=== PATIENT | male | born 1970 | race American Indian/Alaskan Native ===

== ENCOUNTER 2017-03-04 12:02 | Emergency (ER) | payer OTHER ==
[2017-03-04 12:42] LABS: Hematocrit 39.5 % (35.5-45.6); Hemoglobin 13.3 gm/dl (11.8-15.2); Mean Corpuscular HGB Conc 34 % (32-34); Mean Corpuscular Hemoglobin 31 pg (28-32); Mean Corpuscular Volume 91 fl (84-94); Platelet Count 228 K/mm3 (140-440); Red Blood Count 4.34 M/mm3 (3.65-5.03); Red Cell Distribution Width 14.7 % (13.2-15.2); White Blood Count 11.3 K/mm3 (4.5-11.0)
[2017-03-04 12:48] LABS: Urine Drugs of Abuse Note Disclamer
[2017-03-04] MEDS ORDERED: CATAPRES PO ONE ×2 (12:48→16:06)
[2017-03-04 12:53] LABS: Anion Gap 20 mmol/L; Blood Urea Nitrogen 13 mg/dL (9-20); Calcium 9.2 mg/dL (8.4-10.2); Carbon Dioxide 23 mmol/L (22-30); Chloride 100.5 mmol/L (98-107); Glucose 129 mg/dL (75-100); Potassium 3.5 mmol/L (3.6-5.0); Sodium 140 mmol/L (137-145)
--- NOTE | 2017-03-04 13:08 | Emergency Department Report ---
ED Psych HPI - General Chief Complaint: Psych Stated Complaint: SI/HEARING VOICES Time Seen by Provider: 03/04/17 12:30 Source: patient Mode of arrival: Ambulatory Limitations: No Limitations - History of Present Illness Initial Comments: 46-year-old male presents to the emergency department for mental health evaluation. Patient states for the past 5 days, he has been hearing voices and having thoughts of suicide. Patient states he has been using crack cocaine and marijuana. He states he plans to overdose on his drugs. There are no other complaints. MD Complaint: suicidal ideation -: Gradual, days(s) (5) Associated Psychiatric Symptoms: suicidal ideation, auditory hallucinations History of same: No Quality: constant Improves With: none Worsens With: none Context: recent drug abuse Associated Symptoms: denies other symptoms If Self Harm: admits thoughts of, has plan - Related Data Home Medications Medication Instructions Recorded Confirmed Last Taken No Known Home Medications [No 05/12/16 05/26/16 Unknown Reported Home Medications] Allergies Allergy/AdvReac Type Severity Reaction Status Date / Time No Known Allergies Allergy Verified 03/04/17 12:09 ED Review of Systems ROS: Stated complaint: SI/HEARING VOICES Other details as noted in HPI Comment: All other systems reviewed and negative Psychiatric: auditory hallucinations, suicidal thoughts ED Past Medical Hx - Past Medical History Previous Medical History?: Yes Hx Hypertension: Yes Hx Psychiatric Treatment: Yes (substance abuse/detox) - Surgical History Past Surgical History?: Yes Additional Surgical History: L ELBOW. - Family History Family history: no significant - Social History Smoking Status: Never Smoker Substance Use Type: Cocaine, Marijuana - Medications Home Medications: Home Medications Medication Instructions Recorded Confirmed Last Taken Type No Known Home Medications [No 05/12/16 05/26/16 Unknown History Reported Home Medications] ED Physical Exam - General Limitations: No Limitations General appearance: alert, in no apparent distress - Head Head exam: Present: atraumatic, normocephalic - Eye Eye exam: Present: normal appearance, PERRL, EOMI - ENT ENT exam: Present: normal exam, normal orophraynx, mucous membranes moist - Neck Neck exam: Present: normal inspection, full ROM. Absent: tenderness - Respiratory Respiratory exam: Present: normal lung sounds bilaterally. Absent: respiratory distress - Cardiovascular Cardiovascular Exam: Present: normal rhythm, tachycardia, normal heart sounds - GI/Abdominal GI/Abdominal exam: Present: soft, normal bowel sounds. Absent: distended, tenderness - Extremities Exam Extremities exam: Present: normal inspection, full ROM. Absent: tenderness - Back Exam Back exam: Present: normal inspection, full ROM. Absent: tenderness - Neurological Exam Neurological exam: Present: alert, oriented X3. Absent: motor sensory deficit - Psychiatric Psychiatric exam: Present: depressed, suicidal ideation, other (tearful on exam) - Skin Skin exam: Present: warm, dry, intact ED Course Vital Signs 03/04/17 03/04/17 12:12 13:00 Temperature 98.3 F 98 F Pulse Rate 117 H 103 H Respiratory 17 Rate Blood Pressure 186/124 Blood Pressure 150/94 [Left] O2 Sat by Pulse 97 Oximetry ED Medical Decision Making - Lab Data Result diagrams: 03/04/17 12:19 03/04/17 12:19 - Medical Decision Making Lab results reviewed. Patient has been medically cleared. Form 1013 has been signed and placed on the patient's chart. Patient is awaiting mental health evaluation for inpatient placement. - Differential Diagnosis depression, suicidal ideation, drug abuse Critical care attestation.: If time is entered above; I have spent that time in minutes in the direct care of this critically ill patient, excluding procedure time. ED Disposition Clinical Impression: Drug abuse, Suicidal ideation Disposition: DC/TX PSY HOSP/PSY UNIT Is pt being admited?: No Condition: Stable Time of Disposition: 13:19
[2017-03-04 13:11] LABS: Bilirubin,Urine NEG (Negative); Blood,Urine NEG (Negative); Ketones,Urine TR mg/dL (Negative)
[2017-03-04 13:12] LABS: Leukocyte Esterase,Urine NEG (Negative); Mucus,Urine 1+ /HPF; Nitrite,Urine NEG (Negative); Urobilinogen,Urine < 2.0 mg/dL (<2.0)
[2017-03-04 13:25] LABS: Basophils % (Manual) 0 % (0.0-1.8); Blastocytes % (Manual) 0 %; Eosinophils % (Manual) 0 % (0.0-4.3)
[2017-03-04 13:28] LABS: Anisocytosis 1+; Diff Status Complete; Large Platelets Few; Platelet Estimate CV
[2017-03-04] MEDS ORDERED: HALDOL PO PRN (16:15)
[2017-03-05] MEDS ORDERED: CATAPRES ONE (12:56)
[2017-03-05] MEDS ORDERED: TYLENOL ONE (12:56)
[2017-03-05] MEDS ORDERED: TYLENOL PO ONE (12:59)
[2017-03-05] MEDS ORDERED: CATAPRES PO ONE (12:59)
[2017-03-05] MEDS ORDERED: MOTRIN PO ONE (15:17)
--- NOTE | 2017-03-05 16:20 | XRay Report ---
FINAL REPORT PROCEDURE: XR CHEST ROUTINE 2V TECHNIQUE: PA and lateral chest radiographs were obtained. CPT 38155 HISTORY: fever COMPARISON: No prior studies are available for comparison. FINDINGS: Heart: Normal. Mediastinum/Vessels: Normal. Lungs/Pleural space: Normal. Bony thorax: No acute osseous abnormality. Other: IMPRESSION: There is no evidence of an acute cardiopulmonary process.
--- NOTE | 2017-03-06 10:35 | Consultation ---
History of Present Illness - Reason for Consult Consult date: 03/06/17 Reason for consult: Mental Health Evaluation Requesting physician: LEV HAMILTON - Chief Complaint Chief complaint: "I need help to get off the drugs" - History of Present Psychiatric Illness 46-year-old male presents to the emergency department for mental health evaluation. Patient states for the past 5 days, he has been hearing voices and having thoughts of suicide. Today patient is calm and cooperative during the assessment. He stated that his biggest issue is recreational drug use. He stated that his girlfriend put him out a couple days ago, because she felt he isn't being a man of the house. Prior to coming to [facility], patient stated that he got into a argument with his girlfriend and left the house. Once he left the house, he decided to buy drugs and get high (marijuana and cocaine). He stated on arrival to [facility], he felt suicidal and was hearing "crazy voices" in his ears. He stated that he want to be a family man, but the drugs has taken over his life. She stated that he goes to the [facility] for rehab, but he always relapse. He denies SI/H's, AVH's, or a poor appetite. He did state that his sleep has been erratic. He stated that he feels sad and hopeless about his situation over for a "long time." He stated that he has thought about harming himself a couple times. He stated that he drink alcohol seldom. Medications and Allergies Allergies Allergy/AdvReac Type Severity Reaction Status Date / Time No Known Allergies Allergy Verified 03/04/17 12:09 Home Medications Medication Instructions Recorded Confirmed Last Taken Type Unobtainable 03/04/17 03/04/17 Unknown History Active Meds: Active Medications Haloperidol (Haldol) 5 mg PO Q6H PRN PRN Reason: Agitation Past psychiatric history - Past Medical History Past Medical History: No medical history Past Surgical History: No surgical history - past Psychiatric treatment and history psychiatric treatment history: Stated that he goes to [facility] for rehab. He denies an fam pshy hx. 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 Assessment and Plan Assessment and plan: Impression: Substance Use DO (Cocaine and Marijuana), MDD Severe Type. 46-year- old male presents to the emergency department for mental health evaluation. Patient states for the past 5 days, he has been hearing voices and having thoughts of suicide. Today patient is calm and cooperative during the assessment. He stated that his biggest issue is recreational drug use. He stated that his girlfriend put him out a couple days ago, because she felt he isn't being a man of the house. Prior to coming to [facility], patient stated that he go into a argument with his girlfriend and left the house. Once he left the house, he decided to buy drugs and get high (marijuana and cocaine). He stated on arrival to [facility], he felt suicidal and was hearing "crazy voices" in his ears. He denies SI/HIs and AVH's. Positive for marijuana and cocaine. Patient has family dynamic issues with girlfriend. Patient is homeless. DD: R/O Bipolar Recommendation/Plan: Continue 1013 with possible placement to inpatient psy services. Start Zoloft 50 mg PO daily for depression and Benadryl 25 mg PO HS for for sleep. Discussed possible suicidality and medication induced baljit reference antidepressants.
[2017-03-06] MEDS ORDERED: ATIVAN PO ONE (12:43)
[2017-03-06] MEDS ORDERED: NORVASC PO SCH (13:00)
[2017-03-06] MEDS ORDERED: ZOLOFT PO SCH (16:00)
[2017-03-06] MEDS ORDERED: TYLENOL PO ONE (17:02)
[2017-03-06] MEDS ORDERED: MOTRIN PO ONE (17:10)
[2017-03-06] MEDS ORDERED: NACL 0.9% 1000 ML 1,000 ML IV ONE (17:10)
[2017-03-06] MEDS ORDERED: BENADRYL PO SCH (22:00)
[2017-03-06 22:12] VITALS: BP 130/93
== END 2017-03-07 04:30 ==
LOC: ED 12:02 → EEVIPCON 12:02 → ED 03-07 04:30
DX: R45.851 Suicidal ideations (principal); F19.10 Other psychoactive substance abuse, uncomplicated; I10 Essential (primary) hypertension; F14.10 Cocaine abuse, uncomplicated; F12.10 Cannabis abuse, uncomplicated
CPT/HCPCS: 36415; 71020; 80048; 80307; 81001; 85007; 85025; 87116; 87400; 87430; 93005; 93010; 96360; 99285; G0480; J7030; 80320

== ENCOUNTER 2017-08-20 13:14 | Emergency (ER) | payer OTHER ==
[2017-08-20 13:21] VITALS: BP 159/111
[2017-08-20] MEDS ORDERED: MOTRIN PO ONE (15:12)
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
--- NOTE | 2017-08-20 17:08 | XRay Report ---
FINAL REPORT EXAM: XR SPINE CERVICAL 2-3V HISTORY: neck pain TECHNIQUE: Four views cervical spine. PRIORS: CT neck September 20, 2015. FINDINGS: C1-C2 articulation is not clearly visualized. Moderate degenerative disc with anterior osteophytes C4-T1 identified. Mild degenerative disc at C3-C4. No fracture or subluxation. Prevertebral soft tissues are unremarkable. No scoliosis. No suspicious osseous lesions. No vertebral anomalies. IMPRESSION: C1-C2 articulation is not clearly visualized. Multilevel degenerative discs. Overall similar to prior.
== END 2017-08-20 17:20 | disposition home or self-care (01) ==
LOC: ED 13:14
DX: S16.1XXA Strain of muscle, fascia and tendon at neck level, initial encounter (principal); I10 Essential (primary) hypertension; V89.2XXA Person injured in unspecified motor-vehicle accident, traffic, initial encounter; Y93.89 Activity, other specified; Y92.89 Other specified places as the place of occurrence of the external cause; Y99.8 Other external cause status
CPT/HCPCS: 72040; 99283

== ENCOUNTER 2018-06-01 10:29 | Emergency (ER) | payer SELFPAY ==
[2018-06-01 10:57] VITALS: BP 177/87
--- NOTE | 2018-06-01 11:20 | Emergency Department Report ---
- General Chief complaint: Extremity Injury, Upper Stated complaint: LEFT THUMB INJURY Time Seen by Provider: 06/01/18 11:11 Source: patient Mode of arrival: Ambulatory Limitations: No Limitations - History of Present Illness Initial comments: This 47-year-old male nontoxic in appearance with no signs of distress presented to the ER with complaining of paronychia of left thumb. Patient denies any decreased sensation, decreased range of motion, pus, drainage, fever , chills, nausea, vomiting, headache or stiff neck. Patient denies any trauma. Patient denies any allergies. Patient stated has PMH of HTN. MD complaint: other (paronychia) -: days(s) (2) Tetanus Up to Date: yes (2016) Severity: mild Severity scale (0 -10): 8 Quality: aching Consistency: constant Improves with: none Worsens with: none Context: none Associated symptoms: denies other symptoms Treatments Prior to Arrival: none - Related Data Previous Rx's Medication Instructions Recorded Last Taken Type Cyclobenzaprine [Flexeril] 10 mg PO TID PRN #15 tablet 08/20/17 Unknown Rx Naproxen [Naprosyn] 500 mg PO BID #20 tablet 08/20/17 Unknown Rx Ibuprofen [Motrin] 600 mg PO Q8H PRN #30 tablet 06/01/18 Unknown Rx Sulfamethoxazole/Trimethoprim 1 each PO BID #14 tablet 06/01/18 Unknown Rx [Bactrim DS TAB] Allergies Allergy/AdvReac Type Severity Reaction Status Date / Time No Known Allergies Allergy Verified 08/20/17 13:18 Abscess Boil HPI - HPI Chief Complaint: Extremity Injury, Upper Stated Complaint: LEFT THUMB INJURY Time Seen by Provider: 06/01/18 11:11 Home Medications: Previous Rx's Medication Instructions Recorded Last Taken Type Cyclobenzaprine [Flexeril] 10 mg PO TID PRN #15 tablet 08/20/17 Unknown Rx Naproxen [Naprosyn] 500 mg PO BID #20 tablet 08/20/17 Unknown Rx Ibuprofen [Motrin] 600 mg PO Q8H PRN #30 tablet 06/01/18 Unknown Rx Sulfamethoxazole/Trimethoprim 1 each PO BID #14 tablet 06/01/18 Unknown Rx [Bactrim DS TAB] Allergies/Adverse Reactions: Allergies Allergy/AdvReac Type Severity Reaction Status Date / Time No Known Allergies Allergy Verified 08/20/17 13:18 ED Review of Systems ROS: Stated complaint: LEFT THUMB INJURY Other details as noted in HPI Constitutional: denies: chills, fever Eyes: denies: eye pain, eye discharge, vision change ENT: denies: ear pain, throat pain Respiratory: denies: cough, shortness of breath, wheezing Cardiovascular: denies: chest pain, palpitations Endocrine: no symptoms reported Gastrointestinal: denies: abdominal pain, nausea, diarrhea Genitourinary: denies: urgency, dysuria Musculoskeletal: denies: back pain, joint swelling, arthralgia Skin: denies: rash, lesions Neurological: denies: headache, weakness, paresthesias Psychiatric: denies: anxiety, depression Hematological/Lymphatic: denies: easy bleeding, easy bruising ED Past Medical Hx - Past Medical History Previous Medical History?: Yes Hx Hypertension: Yes Hx Psychiatric Treatment: Yes (substance abuse/detox) - Surgical History Past Surgical History?: Yes Additional Surgical History: L ELBOW. - Social History Smoking Status: Never Smoker Substance Use Type: None - Medications Home Medications: Home Medications Medication Instructions Recorded Confirmed Last Taken Type Cyclobenzaprine [Flexeril] 10 mg PO TID PRN #15 tablet 08/20/17 Unknown Rx Naproxen [Naprosyn] 500 mg PO BID #20 tablet 08/20/17 Unknown Rx Ibuprofen [Motrin] 600 mg PO Q8H PRN #30 tablet 06/01/18 Unknown Rx Sulfamethoxazole/Trimethoprim 1 each PO BID #14 tablet 06/01/18 Unknown Rx [Bactrim DS TAB] ED Physical Exam - General Limitations: No Limitations General appearance: alert, in no apparent distress - Head Head exam: Present: atraumatic, normocephalic - Eye Eye exam: Present: normal appearance Pupils: Present: normal accommodation - ENT ENT exam: Present: normal exam, mucous membranes moist - Neck Neck exam: Present: normal inspection, full ROM - Respiratory Respiratory exam: Present: normal lung sounds bilaterally. Absent: respiratory distress - Cardiovascular Cardiovascular Exam: Present: regular rate, normal rhythm. Absent: systolic murmur, diastolic murmur, rubs, gallop - GI/Abdominal GI/Abdominal exam: Present: soft, normal bowel sounds - Rectal Rectal exam: Present: deferred - Extremities Exam Extremities exam: Present: normal inspection, full ROM, tenderness, normal capillary refill, other (left thumb paronychia). Absent: joint swelling - Back Exam Back exam: Present: normal inspection, full ROM - Neurological Exam Neurological exam: Present: alert, oriented X3 - Psychiatric Psychiatric exam: Present: normal affect, normal mood - Skin Skin exam: Present: warm, dry, intact, normal color. Absent: rash ED Course Vital Signs 06/01/18 10:54 Temperature 98 F Pulse Rate 88 Respiratory 18 Rate Blood Pressure 177/87 O2 Sat by Pulse 99 Oximetry - Reevaluation(s) Reevaluation #1: 06/01/18 11:20 Patient is speaking in full sentences with no signs of distress noted. - I & D Left Finger Type of Procedure: Simple Site: left thumb Blade Size: 11 I & D Procedure: betadine prep, sterile drapes applied, sterile dressing applied , gauze wick placed Progress: Under sterile field, I used Betadine to cleanse the area. I then used an 11 blade to make a small incision to separate the cuticle. About 1 mL of purulent drainage has been noted. I then used sterile 0.9% normal saline flush to flush the wound with total volume of 40 mL used. A sterile 4 x 4 with tape has been applied as dressing. Bleeding is under control. Patient tolerated the procedure well with no signs of distress noted. ED Medical Decision Making - Medical Decision Making This is a 47-year-old male that presents with left thumb paronychia. Patient is stable and was examined by me. This incision and drainage and has been performed and patient tolerated well. A sterile dressing has been applied. Patient was educated on proper wound care. Patient is discharged with Bactrim and Tylenol with codein. Patient was instructed not to operate any machinery while taking told codeine due to drowsiness. Patient was instructed to refer to Follow-up with a primary care doctor in 3-5 days or if symptoms worsen and continue return to emergency room as soon as possible. At time of discharge, the patient does not seem toxic or ill in appearance. No acute signs of distress noted. Patient agrees to discharge treatment plan of care. No further questions noted by the patient. Patient requested not to be given any narcotics. Patient is discharged with Tavaresrin Critical care attestation.: If time is entered above; I have spent that time in minutes in the direct care of this critically ill patient, excluding procedure time. ED Disposition Clinical Impression: Paronychia of left thumb, Encounter for incision and drainage procedure Disposition: - TO HOME OR SELFCARE Is pt being admited?: No Does the pt Need Aspirin: No Condition: Stable Instructions: Paronychia (ED), Acute Wound Care (ED), Incision and Drainage (ED ) Additional Instructions: Follow-up with a primary care doctor in 3-5 days or if symptoms worsen and continue return to emergency room as soon as possible. Do not operate any machinery while taking Tylenol with codeine as this may cause drowsiness. Prescriptions: Ibuprofen [Motrin] 600 mg PO Q8H PRN #30 tablet PRN Reason: Pain Sulfamethoxazole/Trimethoprim [Bactrim DS TAB] 1 each PO BID #14 tablet Referrals: PRIMARY CAREMD [Primary Care Provider] - 3-5 Days HARDY KAPOOR MD [Staff Physician] - 3-5 Days [facility] [Outside] - 3-5 Days Forms: Work/School Release Form(ED)
[2018-06-01] MEDS ORDERED: MOTRIN PO ONE (11:55)
[2018-06-01] MEDS ORDERED: MOTRIN ONE (11:59)
== END 2018-06-01 11:59 | disposition home or self-care (01) ==
LOC: ED 10:29
DX: L03.012 Cellulitis of left finger (principal); I10 Essential (primary) hypertension

== ENCOUNTER 2019-02-03 19:00 | Emergency (ER) | payer OTHER ==
[2019-02-03 19:11] VITALS: BP 149/100
--- NOTE | 2019-02-03 19:41 | Emergency Department Report ---
ED General Adult HPI - General Chief complaint: High BP Stated complaint: HBP Time Seen by Provider: 02/03/19 19:30 Source: patient Mode of arrival: Ambulatory Limitations: No Limitations - History of Present Illness Severity scale (0 -10): 10 - Related Data Previous Rx's Medication Instructions Recorded Last Taken Type Cyclobenzaprine [Flexeril] 10 mg PO TID PRN #15 tablet 08/20/17 Unknown Rx Naproxen [Naprosyn] 500 mg PO BID #20 tablet 08/20/17 Unknown Rx Ibuprofen [Motrin] 600 mg PO Q8H PRN #30 tablet 06/01/18 Unknown Rx Sulfamethoxazole/Trimethoprim 1 each PO BID #14 tablet 06/01/18 Unknown Rx [Bactrim DS TAB] Diclofenac Sodium [Solaraze 3%] 1 applicatio TP TID #1 gel..gram. 02/03/19 Unknown Rx Lisinopril [Zestril TAB] 40 mg PO QDAY #30 tablet 02/03/19 Unknown Rx Allergies Allergy/AdvReac Type Severity Reaction Status Date / Time No Known Allergies Allergy Verified 02/03/19 19:11 ED Review of Systems ROS: Stated complaint: HBP Other details as noted in HPI Constitutional: denies: chills, fever Eyes: denies: eye pain, eye discharge, vision change ENT: denies: ear pain, throat pain Respiratory: denies: cough, shortness of breath, wheezing Cardiovascular: denies: chest pain, palpitations Endocrine: no symptoms reported Gastrointestinal: denies: abdominal pain, nausea, diarrhea Genitourinary: denies: urgency, dysuria Musculoskeletal: arthralgia. denies: back pain, joint swelling Skin: denies: rash, lesions Neurological: denies: headache, weakness, paresthesias Psychiatric: denies: anxiety, depression Hematological/Lymphatic: denies: easy bleeding, easy bruising ED Past Medical Hx - Past Medical History Hx Hypertension: Yes Hx Psychiatric Treatment: Yes (substance abuse/detox) - Surgical History Additional Surgical History: L ELBOW. - Social History Smoking Status: Never Smoker Substance Use Type: None - Medications Home Medications: Home Medications Medication Instructions Recorded Confirmed Last Taken Type Cyclobenzaprine [Flexeril] 10 mg PO TID PRN #15 tablet 08/20/17 Unknown Rx Naproxen [Naprosyn] 500 mg PO BID #20 tablet 08/20/17 Unknown Rx Ibuprofen [Motrin] 600 mg PO Q8H PRN #30 tablet 06/01/18 Unknown Rx Sulfamethoxazole/Trimethoprim 1 each PO BID #14 tablet 06/01/18 Unknown Rx [Bactrim DS TAB] Diclofenac Sodium [Solaraze 3%] 1 applicatio TP TID #1 gel..gram. 02/03/19 Unknown Rx Lisinopril [Zestril TAB] 40 mg PO QDAY #30 tablet 02/03/19 Unknown Rx ED Physical Exam - General Limitations: No Limitations General appearance: alert, in no apparent distress - Head Head exam: Present: atraumatic, normocephalic - Eye Eye exam: Present: normal appearance - ENT ENT exam: Present: mucous membranes moist - Neck Neck exam: Present: normal inspection, tenderness. Absent: lymphadenopathy, thyromegaly - Respiratory Respiratory exam: Present: normal lung sounds bilaterally. Absent: respiratory distress, rales, rhonchi, chest wall tenderness, accessory muscle use, decreased breath sounds - Cardiovascular Cardiovascular Exam: Present: regular rate, normal rhythm. Absent: systolic murmur, diastolic murmur, rubs, gallop - GI/Abdominal GI/Abdominal exam: Present: soft, normal bowel sounds - Rectal Rectal exam: Present: deferred - Extremities Exam Extremities exam: Present: normal inspection - Back Exam Back exam: Present: normal inspection - Neurological Exam Neurological exam: Present: alert, oriented X3 - Psychiatric Psychiatric exam: Present: normal affect, normal mood - Skin Skin exam: Present: warm, dry, intact, normal color. Absent: rash ED Course Vital Signs 02/03/19 19:10 Pulse Rate 82 Respiratory 16 Rate Blood Pressure 149/100 [Right] O2 Sat by Pulse 97 Oximetry Critical care attestation.: If time is entered above; I have spent that time in minutes in the direct care of this critically ill patient, excluding procedure time. ED Disposition Clinical Impression: Acute arthritis, Medication refill Disposition: TO HOME OR SELFCARE Is pt being admited?: No Does the pt Need Aspirin: No Condition: Stable Instructions: Capsaicin (On the skin) Prescriptions: Diclofenac Sodium [Solaraze 3%] 1 applicatio TP TID #1 gel..gram. Lisinopril [Zestril TAB] 40 mg PO QDAY #30 tablet Referrals: [facility] [Provider Group] - 3-5 Days
[2019-02-03] MEDS ORDERED: ZESTRIL PO STA (19:50)
== END 2019-02-03 20:47 | disposition home or self-care (01) ==
LOC: ED 19:00
DX: M19.90 Unspecified osteoarthritis, unspecified site (principal); I10 Essential (primary) hypertension; Z76.0 Encounter for issue of repeat prescription; Z79.899 Other long term (current) drug therapy
CPT/HCPCS: 99282

== ENCOUNTER 2019-09-01 17:32 | Emergency (ER) | payer SELFPAY ==
--- NOTE | 2019-09-01 19:29 | Event Note ---
ED Screening Note Date of service: 09/01/19 Time: 19:27 ED Screening Note: 48 y o male presenst with cough, runny nose, leos and chest pain PMH: HTN, running out of meds This initial assessment/diagnostic orders/clinical plan/treatment(s) is/are subject to change based on patients health status, clinical progression and re- assessment by fellow clinical providers in the ED. Further treatment and workup at subsequent clinical providers discretion. Patient/guardian urged not to elope from the ED as their condition may be serious if not clinically assessed and managed. Initial orders include: cxr
--- NOTE | 2019-09-01 20:09 | XRay Report ---
CHEST 2 VIEWS INDICATION / CLINICAL INFORMATION: cough. COMPARISON: None available. FINDINGS: SUPPORT DEVICES: None. HEART / MEDIASTINUM: No significant abnormality. LUNGS / PLEURA: No significant pulmonary or pleural abnormality. .No pneumothorax. ADDITIONAL FINDINGS: No significant additional findings. IMPRESSION: 1. No acute findings. Signer Name: Rony Reeves MD Signed: 09/01/2019 8:04 PM Workstation Name: [id number]
[2019-09-01] MEDS ORDERED: IPRATROPIUM 0.02% NEBU 2.5 ML IH ONE (22:13)
[2019-09-01] MEDS ORDERED: dexAMETHasone 4 MG/ML VIAL IM STA (22:13)
[2019-09-01] MEDS ORDERED: LEVALBUTEROL 0.63 MG/3 ML NEBU IH ONE (22:13)
[2019-09-01] MEDS ORDERED: IBUPROFEN 800 MG TAB PO ONE (22:13)
--- NOTE | 2019-09-01 22:13 | Emergency Department Report ---
Minor Respiratory - HPI Chief Complaint: Upper Respiratory Infection Stated Complaint: CP Time Seen by Provider: 09/01/19 21:39 Pain Location: Facial (pressure), Chest (4/10 only with coughing) Minor Respiratory: Yes Rhinorrhea (nasal congestion), Yes Able to Tolerate Fluids, Yes Cough (that causes chest that hurts), Yes Chest Pain (with coughing), No Sore Throat, No Ear Pain, No Sick Contacts, No Hemoptysis, No Shortness of Breath, No Fever Other History: This is a 48-year-old male here reports that he has been having cold symptoms for over a week started with nose and nasal congestion and is been taken Sudafed [id number] with no relief. He reports facial pressure and no cough and with postnasal drip and he reports cough causes chest hurts with his is coughing a lot. Chest pain only with coughing. Denies any nausea vomiting or shortness of breath. He reports that he had similar episode of chills but did not take his temperature. Facial pain is pressure and chest pain with coughing is 4 out of 10. No medication taken and for pain. Denies any history of heart disease or history of chest pain in the past. Denies any abdominal or back pain. Denies any neck pain or stiffness. ED Review of Systems ROS: Stated complaint: CP Other details as noted in HPI Constitutional: chills Eyes: denies: eye discharge ENT: congestion, other (facial pressure). denies: ear pain, throat pain Respiratory: cough. denies: shortness of breath, SOB with exertion, SOB at rest, stridor, wheezing Cardiovascular: chest pain (related to coughing). denies: palpitations, dyspnea on exertion, edema, syncope, paroxysmal nocturnal dyspnea Gastrointestinal: denies: abdominal pain, nausea, vomiting Musculoskeletal: denies: back pain, arthralgia, myalgia Skin: denies: rash Neurological: denies: headache ED Past Medical Hx - Past Medical History Previous Medical History?: Yes Hx Hypertension: Yes Hx Psychiatric Treatment: Yes (substance abuse/detox) - Surgical History Past Surgical History?: Yes Additional Surgical History: L ELBOW. - Family History Family history: hypertension - Social History Smoking Status: Current Every Day Smoker Substance Use Type: None - Medications Home Medications: Home Medications Medication Instructions Recorded Confirmed Last Taken Type Cyclobenzaprine [Flexeril] 10 mg PO TID PRN #15 tablet 08/20/17 Unknown Rx Naproxen [Naprosyn] 500 mg PO BID #20 tablet 08/20/17 Unknown Rx Ibuprofen [Motrin] 600 mg PO Q8H PRN #30 tablet 06/01/18 Unknown Rx Sulfamethoxazole/Trimethoprim 1 each PO BID #14 tablet 06/01/18 Unknown Rx [Bactrim DS TAB] Diclofenac Sodium [Solaraze 3%] 1 applicatio TP TID #1 gel..gram. 02/03/19 Unknown Rx Lisinopril [Zestril TAB] 40 mg PO QDAY #30 tablet 02/03/19 Unknown Rx Amoxicillin/K Clav Tab [Augmentin 1 tab PO Q12HR #20 tab 09/01/19 Unknown Rx 875MG TAB] Cetirizine HCl [ZyrTEC] 10 mg PO QAM 14 Days #14 capsule 09/01/19 Unknown Rx Fluticasone [Flonase] 1 spray NS QDAY 14 Days #1 bottle 09/01/19 Unknown Rx Lisinopril [Zestril TAB] 40 mg PO QDAY 30 Days #30 tablet 09/01/19 Unknown Rx amLODIPine 10 mg PO DAILY 30 Days #30 tablet 09/01/19 Unknown Rx guaiFENesin/CODEINE [Robitussin AC] 10 ml PO QHS PRN #70 oral.liqd 09/01/19 Unknown Rx predniSONE [Deltasone] 50 mg PO QDAY 3 Days #3 tab 09/01/19 Unknown Rx Minor Respiratory Exam - Exam General: Vital signs noted. No distress. Alert and acting appropriately. This is 48-year-old male well-nourished well-developed in no acute distress HEENT: Yes Moist Mucous Membranes, Yes Rhinorrhea (nasal mucosa congested with erythema and mucosal swelling. Clear drainage), Yes Frontal Tenderness, Yes Maxillary Tenderness, No Pharyngeal Erythema, No Pharyngeal Exudates, No Conjuctival Injection Ear: Neither TM Bulge (bilateral middle ear effusion), Neither TM Erythema, Neither EAC Pain, Neither EAC Discharge Neck: Yes Supple, No Adenopathy Lungs: Yes Good Air Exchange, Yes Wheezes (scant wheezing to upper lung canela), Yes Ronchi (cleared with coughing), Yes Cough (dry cough), No Stridor, No Labored Respirations, No Retractions, No Use of Accessory Muscles, No Other Abnormal Lung Sounds Heart: Yes Regular, No Murmur Abdomen: Yes Normal Bowel Sounds (in all quadrants), No Tenderness, No Peritoneal Signs Skin: No Rash, No Edema Neurologic: Alert and oriented, no deficits. Musculoskeletal: Unremarkable. No cce. + 2 pulses in all extremities, no neurovascular compromise ED Course Vital Signs 09/01/19 19:27 Temperature 98.3 F Pulse Rate 90 Respiratory 18 Rate Blood Pressure 138/78 O2 Sat by Pulse 96 Oximetry - Reevaluation(s) Reevaluation #1: 09/01/19 22:54 She given Decadron 10 mg IM, ibuprofen 800 mg by mouth, Xopenex 0.63 mg and Atrovent 0.5 mg nebulizer and on reevaluation sounds clear. He said he is feeling a lot better. ED Medical Decision Making - Radiology Data Radiology results: report reviewed History dictated by radiologist and report reviewed by myself. See report below Findings [address] [address] XRay Report Signed Patient: RACHELE GENTILE MR#: [id number] : 1970 Acct:[id number] Age/Sex: 48 / M ADM Date: 09/01/19 Loc: ED Attending Dr: Ordering Physician: CLEMENTINA SHARPE Date of Service: 09/01/19 Procedure(s): XR chest routine 2V Accession Number(s): [id number] cc: CLEMENTINA SHARPE Fluoro Time In Minutes: CHEST 2 VIEWS INDICATION / CLINICAL INFORMATION: cough. COMPARISON: None available. FINDINGS: SUPPORT DEVICES: None. HEART / MEDIASTINUM: No significant abnormality. LUNGS / PLEURA: No significant pulmonary or pleural abnormality. .No pneumothorax. ADDITIONAL FINDINGS: No significant additional findings. IMPRESSION: 1. No acute findings. Signer Name: Rony Reeves MD Signed: 09/01/2019 8:04 PM Workstation Name: [id number] Transcribed By: Dictated By: Rony Reeves MD Electronically Authenticated By: Rony Reeves MD Signed Date/Time: 09/01/192003 DD/ 01 TD/TT: - Medical Decision Making This is a 48-year-old male here report that she has been having cold symptoms that started with runny nose and physical findings for sinusitis with cough. Chest x-ray reveals no acute findings. I discussed chest x-ray results with patient along with diagnosis and treatment plan and he voiced understanding. Patient does not have a primary care physician so I will refer him to [facility]. I discussed this with him and he agrees to follow-up. He was given Motrin, Decadron and nebulizer treatment and emergency room and said he feels better. Patient to be discharged home on guaifenesin with codeine, prednisone, Augmentin, Flonase and Zyrtec. Patient requested refill and Norvasc and lisinopril and I discussed with him that he will need to follow-up at [facility] primary care for management of chronic hypertension - Differential Diagnosis pneumonia, bronchitis, sinusitis, viral syndrome Critical care attestation.: If time is entered above; I have spent that time in minutes in the direct care of this critically ill patient, excluding procedure time. ED Disposition Clinical Impression: Cough in adult patient, Medication refill Sinusitis Qualifiers: Sinusitis location: pansinusitis Chronicity: acute Recurrence: recurrent Qualified Code(s): J01.41 - Acute recurrent pansinusitis Disposition: DC- TO HOME OR SELFCARE Is pt being admited?: No Does the pt Need Aspirin: No Condition: Stable Instructions: Sinusitis (ED), Acute Cough (ED) Additional Instructions: Please follow-up with [facility] as instructed status post sinusitis, cough and management of chronic hypertension If Condition worsens, return to the emergency room Take Medication as prescribed Rest and increase your fluid intake Stop taking Sudafed as this can cause elevation in blood pressure do not drive or operate heavy machinery while taking guaifenesin with codeine as this can cause drowsiness Referrals: [facility] [Outside] - 2-3 Days Forms: Work/School Release Form(ED)
[2019-09-02 03:48] VITALS: BP 141/74
== END 2019-09-01 23:30 | disposition home or self-care (01) ==
LOC: ED 17:32
DX: J32.9 Chronic sinusitis, unspecified (principal); I10 Essential (primary) hypertension; F17.200 Nicotine dependence, unspecified, uncomplicated; Z76.0 Encounter for issue of repeat prescription; Z98.890 Other specified postprocedural states
CPT/HCPCS: 71046; 94640; 96372; 99283; J1100; 94644

== ENCOUNTER 2019-09-10 10:33 | Emergency (ER) | payer SELFPAY | END 2019-09-10 11:47 | disposition left against medical advice (07) | LOC: ED 10:33 | DX: R53.1 Weakness (principal); Z53.21 Procedure and treatment not carried out due to patient leaving prior to being seen by health care provider ==

== ENCOUNTER 2019-10-11 06:58 | Emergency (ER) | payer SELFPAY ==
[2019-10-11 07:21] VITALS: BP 123/89
[2019-10-11] MEDS ORDERED: IBUPROFEN 800 MG TAB PO ONE (09:02)
[2019-10-11] MEDS ORDERED: LIDOCAINE (2%) 20 MG/1 ML VIAL 20 ML MDV INFILTRATI ONE (09:03)
--- NOTE | 2019-10-11 09:17 | Emergency Department Report ---
Abscess Boil HPI - HPI Chief Complaint: Skin/Abscess/Foreign Body Stated Complaint: ABCESS UNDER ARM Time Seen by Provider: 10/11/19 08:22 Duration: 1 Week Location: Upper Extremity Severity: Mild History: Yes Pain, No Fever, No Purulent Drainage, No Numbness, No Foreign Body, No Previous History, No Insect Bite HPI: This is a 48-year-old male nontoxic, well nourished in appearance, no acute signs of distress presents to the ED with c/o of redness and pain and swelling to right axilla area. Patient denies any pus or drainage. Patient denies any fever, chills, nausea, vomiting, chest pain, shortness of breath, headache or stiff neck. Patient denies any allergies. Home Medications: Previous Rx's Medication Instructions Recorded Last Taken Type Cyclobenzaprine [Flexeril] 10 mg PO TID PRN #15 tablet 08/20/17 Unknown Rx Naproxen [Naprosyn] 500 mg PO BID #20 tablet 08/20/17 Unknown Rx Ibuprofen [Motrin] 600 mg PO Q8H PRN #30 tablet 06/01/18 Unknown Rx Sulfamethoxazole/Trimethoprim 1 each PO BID #14 tablet 06/01/18 Unknown Rx [Bactrim DS TAB] Diclofenac Sodium [Solaraze 3%] 1 applicatio TP TID #1 gel..gram. 02/03/19 Unknown Rx lisinopriL [Zestril TAB] 40 mg PO QDAY #30 tablet 02/03/19 Unknown Rx Amoxicillin/K Clav Tab [Augmentin 1 tab PO Q12HR #20 tab 09/01/19 Unknown Rx 875MG TAB] Cetirizine HCl [ZyrTEC] 10 mg PO QAM 14 Days #14 capsule 09/01/19 Unknown Rx Fluticasone [Flonase] 1 spray NS QDAY 14 Days #1 bottle 09/01/19 Unknown Rx amLODIPine 10 mg PO DAILY 30 Days #30 tablet 09/01/19 Unknown Rx guaiFENesin/CODEINE [Robitussin AC] 10 ml PO QHS PRN #70 oral.liqd 09/01/19 Unknown Rx lisinopriL [Zestril TAB] 40 mg PO QDAY 30 Days #30 tablet 09/01/19 Unknown Rx predniSONE [Deltasone] 50 mg PO QDAY 3 Days #3 tab 09/01/19 Unknown Rx Ibuprofen [Motrin] 600 mg PO Q8H PRN #20 tablet 10/11/19 Unknown Rx Sulfamethoxazole/Trimethoprim 1 each PO BID #14 tablet 10/11/19 Unknown Rx [Bactrim DS TAB] Allergies/Adverse Reactions: Allergies Allergy/AdvReac Type Severity Reaction Status Date / Time No Known Allergies Allergy Verified 02/03/19 19:11 ED Review of Systems ROS: Stated complaint: ABCESS UNDER ARM Other details as noted in HPI Constitutional: denies: chills, fever Eyes: denies: eye pain, eye discharge, vision change ENT: denies: ear pain, throat pain Respiratory: denies: cough, shortness of breath, wheezing Cardiovascular: denies: chest pain, palpitations Endocrine: no symptoms reported Gastrointestinal: denies: abdominal pain, nausea, diarrhea Genitourinary: denies: urgency, dysuria Musculoskeletal: denies: back pain, joint swelling, arthralgia Skin: denies: rash, lesions Neurological: denies: headache, weakness, paresthesias Psychiatric: denies: anxiety, depression Hematological/Lymphatic: denies: easy bleeding, easy bruising ED Past Medical Hx - Past Medical History Previous Medical History?: Yes Hx Hypertension: Yes Hx Psychiatric Treatment: Yes (substance abuse/detox) - Surgical History Past Surgical History?: Yes Additional Surgical History: L ELBOW. - Social History Smoking Status: Never Smoker Substance Use Type: Cocaine - Medications Home Medications: Home Medications Medication Instructions Recorded Confirmed Last Taken Type Cyclobenzaprine [Flexeril] 10 mg PO TID PRN #15 tablet 08/20/17 Unknown Rx Naproxen [Naprosyn] 500 mg PO BID #20 tablet 08/20/17 Unknown Rx Ibuprofen [Motrin] 600 mg PO Q8H PRN #30 tablet 06/01/18 Unknown Rx Sulfamethoxazole/Trimethoprim 1 each PO BID #14 tablet 06/01/18 Unknown Rx [Bactrim DS TAB] Diclofenac Sodium [Solaraze 3%] 1 applicatio TP TID #1 gel..gram. 02/03/19 Unknown Rx lisinopriL [Zestril TAB] 40 mg PO QDAY #30 tablet 02/03/19 Unknown Rx Amoxicillin/K Clav Tab [Augmentin 1 tab PO Q12HR #20 tab 09/01/19 Unknown Rx 875MG TAB] Cetirizine HCl [ZyrTEC] 10 mg PO QAM 14 Days #14 capsule 09/01/19 Unknown Rx Fluticasone [Flonase] 1 spray NS QDAY 14 Days #1 bottle 09/01/19 Unknown Rx amLODIPine 10 mg PO DAILY 30 Days #30 tablet 09/01/19 Unknown Rx guaiFENesin/CODEINE [Robitussin AC] 10 ml PO QHS PRN #70 oral.liqd 09/01/19 Unknown Rx lisinopriL [Zestril TAB] 40 mg PO QDAY 30 Days #30 tablet 09/01/19 Unknown Rx predniSONE [Deltasone] 50 mg PO QDAY 3 Days #3 tab 09/01/19 Unknown Rx Ibuprofen [Motrin] 600 mg PO Q8H PRN #20 tablet 10/11/19 Unknown Rx Sulfamethoxazole/Trimethoprim 1 each PO BID #14 tablet 10/11/19 Unknown Rx [Bactrim DS TAB] ED Abscess Boil Physical Exam - Exam General: Vital signs noted. No distress. Alert and acting appropriately. Size: 2 cm Exam: Yes Tenderness, Yes Fluctuance, Yes Normal Neurologic Exam, Yes Normal Circulation, No Surrounding Cellulites/Erythema, No Lymphangitis, No Crepitation, No Heart Murmur I & D Note - I & D Note I & D Note: Under sterile field, I used Betadine to cleanse the area. I then used 2% lidocaine plain with 25-gauge 5/8 needle to inject area for anesthetic purposes. Total volume injected 3 mL. I then used an 11 blade to make a 1 cm incision. About 2 mL's of purulent drainage has been noted. I then used a hemostat to break the abscess formation. I then used sterile 0.9% normal saline flush to flush the wound with total volume of 40 mL used. I then put a 1/4 iodoform packing to the incision. A sterile 4 x 4 with tape has been applied as dressing. Bleeding is under control. Patient tolerated the procedure well with no signs of distress noted. ED Course Vital Signs 10/11/19 07:18 Temperature 97.8 F Pulse Rate 84 Respiratory 16 Rate Blood Pressure 123/89 O2 Sat by Pulse 97 Oximetry - Reevaluation(s) Reevaluation #1: 10/11/19 09:14 Patient is speaking in full sentences with no signs of distress noted. Critical care attestation.: If time is entered above; I have spent that time in minutes in the direct care of this critically ill patient, excluding procedure time. ED Medical Decision Making - Medical Decision Making This is a 48-year-old male that presents with right axillary abscess. Patient is stable and was examined by me. This is incision and drainage and has been performed and patient tolerated well. A sterile dressing has been applied. Patient was educated on proper wound care. Patient is discharged with Bactrim. Patient was instructed to return in 2 days for packing removal. Patient was instructed to refer to Follow-up with a primary care doctor in 3-5 days or if symptoms worsen and continue return to emergency room as soon as possible. At time of discharge, the patient does not seem toxic or ill in appearance. No acute signs of distress noted. Patient agrees to discharge treatment plan of care. No further questions noted by the patient. ED Disposition Clinical Impression: Abscess of right axilla, Encounter for incision and drainage procedure Disposition: TO HOME OR SELFCARE Is pt being admited?: No Does the pt Need Aspirin: No Condition: Stable Instructions: Abscess (ED), Abscess Incision and Drainage (ED) Additional Instructions: Follow-up with a primary care doctor in 3-5 days or if symptoms worsen and continue return to emergency room as soon as possible. Return in 2 days for packing removal. Prescriptions: Sulfamethoxazole/Trimethoprim [Bactrim DS TAB] 1 each PO BID #14 tablet Ibuprofen [Motrin] 600 mg PO Q8H PRN #20 tablet PRN Reason: Pain Referrals: ELISHA WYATT MD [Primary Care Provider] - 3-5 Days EDUARDO ANAYA MD [Staff Physician] - 3-5 Days [facility] [Outside] - 3-5 Days Forms: Work/School Release Form(ED)
== END 2019-10-11 09:58 | disposition home or self-care (01) ==
LOC: ED 06:58
DX: L02.411 Cutaneous abscess of right axilla (principal); I10 Essential (primary) hypertension; F14.10 Cocaine abuse, uncomplicated
CPT/HCPCS: 99282

== ENCOUNTER 2019-10-13 09:06 | Emergency (ER) | payer SELFPAY ==
[2019-10-13 09:23] VITALS: BP 133/92
== END 2019-10-13 10:00 | disposition left against medical advice (07) ==
LOC: ED 09:06
DX: Z48.01 Encounter for change or removal of surgical wound dressing (principal); Z53.21 Procedure and treatment not carried out due to patient leaving prior to being seen by health care provider

== ENCOUNTER 2019-10-13 14:16 | Emergency (ER) | payer SELFPAY ==
[2019-10-13 17:07] VITALS: BP 124/82
--- NOTE | 2019-10-13 17:08 | Emergency Department Report ---
- General Chief Complaint: Wound/Laceration Stated Complaint: WOUND CHECK Time Seen by Provider: 10/13/19 17:00 Source: patient Mode of arrival: Ambulatory Limitations: No Limitations - History of Present Illness Initial Comments: Patient is here for packing removal. Patient is currently taking his antibiotic and pain medications. Location: chest Place: home Patient Tetanus UTD: Yes - Related Data Previous Rx's Medication Instructions Recorded Last Taken Type Cyclobenzaprine [Flexeril] 10 mg PO TID PRN #15 tablet 08/20/17 Unknown Rx Naproxen [Naprosyn] 500 mg PO BID #20 tablet 08/20/17 Unknown Rx Ibuprofen [Motrin] 600 mg PO Q8H PRN #30 tablet 06/01/18 Unknown Rx Sulfamethoxazole/Trimethoprim 1 each PO BID #14 tablet 06/01/18 Unknown Rx [Bactrim DS TAB] Diclofenac Sodium [Solaraze 3%] 1 applicatio TP TID #1 gel..gram. 02/03/19 Un known Rx lisinopriL [Zestril TAB] 40 mg PO QDAY #30 tablet 02/03/19 Unknown Rx Amoxicillin/K Clav Tab [Augmentin 1 tab PO Q12HR #20 tab 09/01/19 Unknown Rx 875MG TAB] Cetirizine HCl [ZyrTEC] 10 mg PO QAM 14 Days #14 capsule 09/01/19 Unknown Rx Fluticasone [Flonase] 1 spray NS QDAY 14 Days #1 bottle 09/01/19 Unknown Rx amLODIPine 10 mg PO DAILY 30 Days #30 tablet 09/01/19 Unknown Rx guaiFENesin/CODEINE [Robitussin AC] 10 ml PO QHS PRN #70 oral.liqd 09/01/19 Unknown Rx lisinopriL [Zestril TAB] 40 mg PO QDAY 30 Days #30 tablet 09/01/19 Unknown Rx predniSONE [Deltasone] 50 mg PO QDAY 3 Days #3 tab 09/01/19 Unknown Rx Ibuprofen [Motrin] 600 mg PO Q8H PRN #20 tablet 10/11/19 Unknown Rx Sulfamethoxazole/Trimethoprim 1 each PO BID #14 tablet 10/11/19 Unknown Rx [Bactrim DS TAB] Allergies Allergy/AdvReac Type Severity Reaction Status Date / Time No Known Allergies Allergy Verified 05/04/19 19:11 ED Review of Systems ROS: Stated complaint: WOUND CHECK Other details as noted in HPI Comment: All other systems reviewed and negative ED Past Medical Hx - Past Medical History Hx Hypertension: Yes Hx Psychiatric Treatment: Yes (substance abuse/detox) - Surgical History Additional Surgical History: L ELBOW. - Social History Smoking Status: Never Smoker Substance Use Type: None - Medications Home Medications: Home Medications Medication Instructions Recorded Confirmed Last Taken Type Cyclobenzaprine [Flexeril] 10 mg PO TID PRN #15 tablet 08/20/17 Unknown Rx Naproxen [Naprosyn] 500 mg PO BID #20 tablet 08/20/17 Unknown Rx Ibuprofen [Motrin] 600 mg PO Q8H PRN #30 tablet 06/01/18 Unknown Rx Sulfamethoxazole/Trimethoprim 1 each PO BID #14 tablet 06/01/18 Unknown Rx [Bactrim DS TAB] Diclofenac Sodium [Solaraze 3%] 1 applicatio TP TID #1 gel..gram. 02/03/19 Unknown Rx lisinopriL [Zestril TAB] 40 mg PO QDAY #30 tablet 02/03/19 Unknown Rx Amoxicillin/K Clav Tab [Augmentin 1 tab PO Q12HR #20 tab 09/01/19 Unknown Rx 875MG TAB] Cetirizine HCl [ZyrTEC] 10 mg PO QAM 14 Days #14 capsule 09/01/19 Unknown Rx Fluticasone [Flonase] 1 spray NS QDAY 14 Days #1 bottle 09/01/19 Unknown Rx amLODIPine 10 mg PO DAILY 30 Days #30 tablet 09/01/19 Unknown Rx guaiFENesin/CODEINE [Robitussin AC] 10 ml PO QHS PRN #70 oral.liqd 09/01/19 Unknown Rx lisinopriL [Zestril TAB] 40 mg PO QDAY 30 Days #30 tablet 09/01/19 Unknown Rx predniSONE [Deltasone] 50 mg PO QDAY 3 Days #3 tab 09/01/19 Unknown Rx Ibuprofen [Motrin] 600 mg PO Q8H PRN #20 tablet 10/11/19 Unknown Rx Sulfamethoxazole/Trimethoprim 1 each PO BID #14 tablet 10/11/19 Unknown Rx [Bactrim DS TAB] ED Physical Exam - General Limitations: No Limitations General appearance: alert, in no apparent distress - Head Head exam: Present: atraumatic, normocephalic - Eye Eye exam: Present: normal appearance - Neurological Exam Neurological exam: Present: alert, oriented X3 - Psychiatric Psychiatric exam: Present: normal affect, normal mood - Skin Skin exam: Present: warm, dry, intact, other (wound with packing ) - Procedure Description Procedures done: packing removal from left chest. ED Medical Decision Making - Medical Decision Making Patient is here for packing removal. Patient is currently taking his antibiotic and pain medications. Critical care attestation.: If time is entered above; I have spent that time in minutes in the direct care of this critically ill patient, excluding procedure time. ED Disposition Clinical Impression: Abscess packing removal Disposition: DC-01 TO HOME OR SELFCARE Is pt being admited?: No Does the pt Need Aspirin: No Condition: Stable Additional Instructions: Keep wound clean and dry. Continue with Antibiotic and pain meds. Referrals: PRIMARY CAREMD [Primary Care Provider] - 3-5 Days EDUARDO ANAYA MD [Staff Physician] - 3-5 Days Forms: Work/School Release Form(ED)
== END 2019-10-13 17:03 | disposition home or self-care (01) ==
LOC: ED 14:16
DX: Z48.02 Encounter for removal of sutures (principal); Z53.21 Procedure and treatment not carried out due to patient leaving prior to being seen by health care provider

== ENCOUNTER 2019-11-29 06:00 | Emergency (ER) | payer SELFPAY ==
[2019-11-29 06:06] VITALS: BP 158/104
--- NOTE | 2019-11-29 07:35 | Emergency Department Report ---
Chief Complaint: Urogenital-Male Stated Complaint: PENILE BURNING SENSATION Time Seen by Provider: 11/29/19 07:31 - HPI History of Present Illness: 49-year-old -[place] male comes to the ER after having sex with his baby mamma. He states that he has tingling. He denies any discharge. There is no testicular pain. Patient then adds that he needs a refill of his blood pressure medications. - ROS Review of Systems: Tingling of tip of penis. No discharge. No lesions. No testicular pain. No abdominal pain. No headache. No chest pain. No shortness of breath. Ambulatory and nontoxic on exam. - Exam Vital Signs: Vital Signs 11/29/19 06:04 Temperature 98.0 F Pulse Rate 91 H Respiratory 18 Rate Blood Pressure 158/104 O2 Sat by Pulse 95 Oximetry Physical Exam: Alert and oriented x4. No focal deficit. S1-S2. Lungs clear. Abdomen obese soft nontender. MSE screening note: Focused history and physical exam performed. Due to findings the following was ordered: No life-threatening emergency. Patient given referral to primary care for his [id number] medical needs. Patient discussed with doctor:: ROBB DHILLON ED Medical Decision Making - Medical Decision Making Patient upset that he is not being seen in the emergency room. Myself as well as nursing staff have explained to him he has a [id number] need and can be better suited for his treatment in primary care. ED Disposition for MSE Clinical Impression: Medication refill, Concern about STD in male without diagnosis Disposition: DC-01 TO HOME OR SELFCARE Is pt being admited?: No Does the pt Need Aspirin: No Condition: Stable Referrals: EDUARDO ANAYA MD [Staff Physician] - 3-5 Days Time of Disposition: 07:34
== END 2019-11-29 07:52 | disposition home or self-care (01) ==
LOC: ED 06:00
DX: A64 Unspecified sexually transmitted disease (principal); Z76.0 Encounter for issue of repeat prescription
CPT/HCPCS: 99281

== ENCOUNTER 2021-06-01 16:59 | Emergency (ER) | payer MEDICAID | END 2021-06-01 19:00 | disposition left against medical advice (07) | LOC: ED 16:59 | DX: U07.1 COVID-19 (principal); Z53.21 Procedure and treatment not carried out due to patient leaving prior to being seen by health care provider ==